=== PATIENT | male | born 1945 | race Caucasian/White ===

== ENCOUNTER 2016-10-20 19:52 | Observation (INO) | payer MEDICARE ==
[~2016-10-20] VITALS: Ht 175.3 cm; Wt 79.5 kg
[2016-10-20 20:11] LABS: BASOPHILS % (AUTO) 1 % (0-10); EOSINOPHILS # (AUTO) 0.2 10^3/uL (0.0-0.3); EOSINOPHILS % (AUTO) 3 % (0-10); LYMPHOCYTES # (AUTO) 1.6 X 10^3 (1.0-4.0); LYMPHOCYTES % (AUTO) 30 % (12-44); MEAN CORPUSCULAR HEMOGLOBIN 32 PG (25-34); MEAN CORPUSCULAR HGB CONC 34 G/DL (32-36); MEAN CORPUSCULAR VOLUME 94 FL (80-99); MEAN PLATELET VOLUME 9.4 FL (7.4-10.4); MONOCYTES # (AUTO) 0.8 X 10^3 (0.0-1.0); MONOCYTES % (AUTO) 15 % (0-12); NEUTROPHILS # (AUTO) 2.7 X 10^3 (1.8-7.8); NEUTROPHILS % (AUTO) 52 % (42-75); PLATELET COUNT 241 10^3/uL (130-400); RED BLOOD COUNT 4.48 10^6/uL (4.35-5.85); RED CELL DISTRIBUTION WIDTH 13.5 % (10.0-14.5); WHITE BLOOD COUNT 5.3 10^3/uL (4.3-11.0)
[2016-10-20 20:22] LABS: PROTHROMBIN TIME PATIENT 13.2 SEC (12.2-14.7)
--- NOTE | 2016-10-20 20:22 | ED General ---
General Chief Complaint: General Problems/Pain Stated Complaint: UNRESPONSIVE Nursing Triage Note: Patient was sitting at table talking to spouse and wouldn't respond. patient was laid on floor and then patient woke again and has been alert since. patient reports golfing today and having 6 beers and a couple mixed drinks Nursing Sepsis Screen: No Definite Risk Source of Information: Patient Exam Limitations: No Limitations History of Present Illness Time Seen by Provider: 20:20 Initial Comments Patient passed out at home. He was sitting at the dinner table talking to his when his head dropped onto his chest and he began to snore. He was completely unresponsive. kept him upright in his chair. When EMS arrived they laid patient supine any quickly regained consciousness. He is on no medicines. He states he's been drinking "all day" and playing golf. He denies chest pain or headache. No vomiting or diarrhea. Allergies and Home Medications Allergies Coded Allergies: Penicillins (Verified Allergy, Unknown, HAD WHEN YOUNG, 01/11/16) Home Medications No Active Prescriptions or Reported Meds Constitutional: malaise, weakness Respiratory: no symptoms reported Cardiovascular: syncope Genitourinary: no symptoms reported Musculoskeletal: no symptoms reported All Other Systems Reviewed Negative Unless Noted: Yes Past Nrmwclu-Tgqceg-Wfrdxi Hx Patient Social History Alcohol Use: Regular Use Recreational Drug Use: No Smoking Status: Former Smoker Recent Foreign Travel: No Contact w/Someone Who Travel: No Recent Infectious Disease Expo: No Recent Hopitalizations: No Seasonal Allergies Seasonal Allergies: No Surgeries HX Surgeries: Yes (THUMB LIGAMENT) Respiratory Hx Respiratory Disorders: No Cardiovascular Hx Cardiac Disorders: No Gastrointestinal Hx Gastrointestinal Disorders: No Musculoskeletal Hx Musculoskeletal Disorders: No Endocrine Hx Endocrine Disorders: No Reviewed Nursing Assessment Reviewed/Agree w Nursing PMH: Yes Physical Exam Vital Signs Vital Sign - Last 12Hours 10/20/16 19:58 Temp 98.4 Pulse 76 Resp 18 B/P (MAP) 107/66 Pulse Ox 97 O2 Delivery Room Air Capillary Refill : Less Than 3 Seconds General Appearance: No Apparent Distress, WD/WN Eyes: Bilateral Eye EOMI, Bilateral Eye Normal Inspection, Bilateral Eye PERRL HEENT: PERRL/EOMI, Pharynx Normal Neck: Supple Respiratory: Lungs Clear, Normal Breath Sounds Cardiovascular: Regular Rate, Rhythm, No Edema Gastrointestinal: Non Tender, Soft Extremity: Normal Inspection, Normal Range of Motion, No Pedal Edema Neurologic/Psychiatric: Alert, Oriented x3, No Motor/Sensory Deficits, Normal Mood/Affect, physician specialist II-XII Norm as Tested Skin: Warm/Dry, Other (flushed) Progress/Results/Core Measures Results/Orders Lab Results Laboratory Tests Test 10/20/16 20:03 Range/Units White Blood Count 5.3 4.3-11.0 10^3/uL Red Blood Count 4.48 4.35-5.85 10^6/uL Hemoglobin 14.2 13.3-17.7 G/DL Hematocrit 42 40-54 % Mean Corpuscular Volume 94 80-99 FL Mean Corpuscular Hemoglobin 32 25-34 PG Mean Corpuscular Hemoglobin Concent 34 32-36 G/DL Red Cell Distribution Width 13.5 10.0-14.5 % Platelet Count 241 130-400 10^3/uL Mean Platelet Volume 9.4 7.4-10.4 FL Neutrophils (%) (Auto) 52 42-75 % Lymphocytes (%) (Auto) 30 12-44 % Monocytes (%) (Auto) 15 H 0-12 % Eosinophils (%) (Auto) 3 0-10 % Basophils (%) (Auto) 1 0-10 % Neutrophils # (Auto) 2.7 1.8-7.8 X 10^3 Lymphocytes # (Auto) 1.6 1.0-4.0 X 10^3 Monocytes # (Auto) 0.8 0.0-1.0 X 10^3 Eosinophils # (Auto) 0.2 0.0-0.3 10^3/uL Basophils # (Auto) 0.0 0.0-0.1 10^3/uL Prothrombin Time 13.2 12.2-14.7 SEC INR Comment 1.0 0.8-1.4 Activated Partial Thromboplast Time 25 24-35 SEC Sodium Level 140 135-145 MMOL/L Potassium Level 3.9 3.6-5.0 MMOL/L Chloride Level 106 98-107 MMOL/L Carbon Dioxide Level 23 21-32 MMOL/L Anion Gap 11 5-14 MMOL/L Blood Urea Nitrogen 12 7-18 MG/DL Creatinine 1.31 H 0.60-1.30 MG/DL Estimat Glomerular Filtration Rate 54 BUN/Creatinine Ratio 9 Glucose Level 98 70-105 MG/DL Calcium Level 8.6 8.5-10.1 MG/DL Magnesium Level 2.2 1.8-2.4 MG/DL Total Bilirubin 0.3 0.1-1.0 MG/DL Aspartate Amino Transf (AST/SGOT) 22 5-34 U/L Alanine Aminotransferase (ALT/SGPT) 19 0-55 U/L Alkaline Phosphatase 54 40-136 U/L Troponin I < 0.30 <0.30 NG/ML Total Protein 6.4 6.4-8.2 G/DL Albumin 3.9 3.2-4.5 G/DL Salicylates Level < 5.0 L 5.0-20.0 MG/DL Acetaminophen Level < 10 L 10-30 UG/ML Serum Alcohol 111 H <10 MG/DL Labs were reviewed My Orders Orders - JOSELYN DERAS MD Ct Head Wo (10/20/16 19:57) Cbc With Automated Diff (10/20/16 19:57) Magnesium (10/20/16 19:57) Chest 1 View, Ap/Pa Only (10/20/16 19:57) Ekg Tracing (10/20/16 19:57) Cardiac Profile 1 (10/20/16 19:57) Comprehensive Metabolic Panel (10/20/16 19:57) Protime With Inr (10/20/16 19:57) Partial Thromboplastin Time (10/20/16 19:57) O2 (10/20/16 19:57) Monitor-Rhythm Ecg Trace Only (10/20/16 19:57) Saline Lock/Iv-Start (10/20/16 19:57) Acetaminophen (10/20/16 20:03) Alcohol (10/20/16 20:03) Drug Screen Stat (Urine) (10/20/16 20:03) Salicylate (10/20/16 20:03) Vital Signs/I&O Vital Sign - Last 12Hours 10/20/16 10/20/16 19:58 19:58 Temp 98.4 Pulse 76 Resp 18 B/P (MAP) 107/66 Pulse Ox 97 O2 Delivery Room Air Blood Pressure Mean: 80 Progress Note : Time: 20:43 Progress Note Test results discussed with patient and spouse. I recommended admission for observation ECG Initial ECG Rhythm: Normal Sinus Initial ECG Intervals: Normal Initial ECG Impression: Nonspecific Changes Diagnostic Imaging Comments Date of Exam:10/20/16 CHEST 1 VIEW, AP/PA ONLY EXAMINATION: Chest radiograph, portable AP view. DATE: October 20, 2016 at 2010 hours. INDICATION: 71-year-old male, syncope. COMPARISON: None. FINDINGS: Heart size and mediastinal contours are unremarkable. There is no identified pneumothorax. There is no large pleural effusion. There is no identified focal airspace consolidation. IMPRESSION: No identified acute cardiopulmonary abnormality. Date of Exam:10/20/16 CT HEAD WO PROCEDURE: CT head without contrast. TECHNIQUE: Multiple contiguous axial images were obtained through the brain without the use of intravenous contrast. DATE: October 20, 2016. COMPARISON: None. INDICATION: 71-year-old male, syncopal episode. FINDINGS: The ventricles and cerebral spinal fluid spaces are of normal size and configuration for the patient's age. There is no mass effect or midline shift. There is no acute intracranial hemorrhage. There is no abnormal extra-axial fluid collection. There is mucosal thickening of the left maxillary sinus. Additional visualized portions of the paranasal sinuses, mastoid air cells and middle ears are well aerated. There is pneumatization of the petrous apices. IMPRESSION: No identified acute intracranial abnormality. Departure Communication Time/Spoke to Admitting Phy: 20:43 Communication I spoke with Dr. Larsen who agrees to admit for observation Impression Impression: Primary Impression: Syncope Disposition: ADMITTED INPATIENT Condition: Stable Decision to Admit Reason: Admit from ER (General) Decision to Admit/Date: Oct 20, 2016 Time/Decision to Admit Time: 20:42 Departure-Patient Inst. Referrals: DAISY DERAS MD (PCP) Primary Care Physician Scripts No Active Prescriptions or Reported Meds JOSELYN DERAS MD Oct 20, 2016 20:22
--- NOTE | 2016-10-20 20:28 | Diagnostic Imaging Report ---
EXAMINATION: Chest radiograph, portable AP view. DATE: October 20, 2016 at 2010 hours. INDICATION: 71-year-old male, syncope. COMPARISON: None. FINDINGS: Heart size and mediastinal contours are unremarkable. There is no identified pneumothorax. There is no large pleural effusion. There is no identified focal airspace consolidation. IMPRESSION: No identified acute cardiopulmonary abnormality. Dictated by: Dictated on workstation # [id number]
[2016-10-20 20:34] LABS: ALANINE AMINOTRANSFERASE 19 U/L (0-55); ALBUMIN 3.9 G/DL (3.2-4.5); ALCOHOL 111 MG/DL (<10); ANION GAP 11 MMOL/L (5-14); ASPARTATE AMINO TRANSFERASE 22 U/L (5-34); BILIRUBIN,TOTAL 0.3 MG/DL (0.1-1.0); BLOOD UREA NITROGEN 12 MG/DL (7-18); BUN/CREATININE RATIO 9; CALCIUM 8.6 MG/DL (8.5-10.1); CARBON DIOXIDE 23 MMOL/L (21-32); CHLORIDE 106 MMOL/L (98-107); CREATININE SERUM 1.31 MG/DL (0.60-1.30); GFR ESTIMATED 54; GLUCOSE 98 MG/DL (70-105); MAGNESIUM 2.2 MG/DL (1.8-2.4); POTASSIUM 3.9 MMOL/L (3.6-5.0); SALICYLATE < 5.0 MG/DL (5.0-20.0); SODIUM 140 MMOL/L (135-145); TOTAL PROTEIN 6.4 G/DL (6.4-8.2)
[2016-10-20 20:35] LABS: ACETAMINOPHEN < 10 UG/ML (10-30)
--- NOTE | 2016-10-20 20:40 | Diagnostic Imaging Report ---
PROCEDURE: CT head without contrast. TECHNIQUE: Multiple contiguous axial images were obtained through the brain without the use of intravenous contrast. DATE: October 20, 2016. COMPARISON: None. INDICATION: 71-year-old male, syncopal episode. FINDINGS: The ventricles and cerebral spinal fluid spaces are of normal size and configuration for the patient's age. There is no mass effect or midline shift. There is no acute intracranial hemorrhage. There is no abnormal extra-axial fluid collection. There is mucosal thickening of the left maxillary sinus. Additional visualized portions of the paranasal sinuses, mastoid air cells and middle ears are well aerated. There is pneumatization of the petrous apices. IMPRESSION: No identified acute intracranial abnormality. Dictated by: Dictated on workstation # [id number]
[2016-10-20] MEDS ORDERED: ATROPINE INJ 0.4 MG/ML SDV ONE (21:51)
[2016-10-20 21:59] VITALS: BP 93/69
[2016-10-20 23:02] VITALS: BP 106/72
[2016-10-20] MEDS ORDERED: NS IV 1000 ML 1,000 ML ONE (23:08)
[2016-10-20] MEDS ORDERED: ATROPINE INJECTION 1 MG/10 ML SYR (ABBOTT) ONE (23:09)
[2016-10-20] MEDS: NS IV 1000 ML 1,000 ML IV SCH (23:16)
[2016-10-20] MEDS ORDERED: ATROPINE IV PRN (23:30)
[2016-10-21] VITALS (14 sets, daily range): BP systolic 102–145; BP diastolic 56–90
[2016-10-21 05:33] LABS: BASOPHILS % (AUTO) 0 % (0-10); EOSINOPHILS # (AUTO) 0.1 10^3/uL (0.0-0.3); EOSINOPHILS % (AUTO) 1 % (0-10); LYMPHOCYTES # (AUTO) 0.9 X 10^3 (1.0-4.0); LYMPHOCYTES % (AUTO) 15 % (12-44); MEAN CORPUSCULAR HEMOGLOBIN 32 PG (25-34); MEAN CORPUSCULAR HGB CONC 33 G/DL (32-36); MEAN CORPUSCULAR VOLUME 95 FL (80-99); MEAN PLATELET VOLUME 9.7 FL (7.4-10.4); MONOCYTES # (AUTO) 0.8 X 10^3 (0.0-1.0); MONOCYTES % (AUTO) 13 % (0-12); NEUTROPHILS # (AUTO) 4.2 X 10^3 (1.8-7.8); NEUTROPHILS % (AUTO) 71 % (42-75); PLATELET COUNT 216 10^3/uL (130-400); RED BLOOD COUNT 4.32 10^6/uL (4.35-5.85); RED CELL DISTRIBUTION WIDTH 13.7 % (10.0-14.5)
[2016-10-21 05:51] LABS: ANION GAP 7 MMOL/L (5-14); BLOOD UREA NITROGEN 13 MG/DL (7-18); BUN/CREATININE RATIO 13; CALCIUM 8.9 MG/DL (8.5-10.1); CARBON DIOXIDE 23 MMOL/L (21-32); CHLORIDE 109 MMOL/L (98-107); CHOLESTEROL 159 MG/DL (< 200); CREATININE SERUM 1.03 MG/DL (0.60-1.30); DIRECT LDL 77 MG/DL (1-129); GFR ESTIMATED > 60; GLUCOSE 129 MG/DL (70-105); MAGNESIUM 2.3 MG/DL (1.8-2.4); PHOSPHORUS 3.2 MG/DL (2.3-4.7); POTASSIUM 4.4 MMOL/L (3.6-5.0); SODIUM 139 MMOL/L (135-145); TRIGLYCERIDES 96 MG/DL (<150); VLDL CHOLESTEROL 19 MG/DL (5-40)
[2016-10-21] MEDS: NS IV 1000 ML 1,000 ML IV SCH (09:10)
--- NOTE | 2016-10-21 11:07 | Consultation-Cardiology ---
HPI-Cardiology Cardiology Consultation: Date of Consultation 10/21/16 Date of Admission 10/20/16 Attending Physician Blanquita Larsen DO Admitting Physician Adeel Grayson MD Consulting Physician ISHAN SOSA MD, FACP, FACC, [facility], CCDS HPI: Chief Complaint: Syncope 71 yo man who passed out the super table. His significant other reports that he started to fade away, snored and started to fall forward when she held him. He came around in about in a min. This happened one time again, again for about a min. His fam and friends laid him down and he came around. These episodes were not preceded by any symptoms other than a feeling of dizziness and warmth. He had been out in the sun, playing golf all day without any water intake, but did have a total of 6-8 beers and 4-5 cocktails before symptoms last night. Had another episode of lilly and low bp while sitting up in the bed in ER. That was also less than a min and responded to flattening the bed No cp or palp or leg swelling or syncope (other than yesterday's episodes) Doesn't smoke cigarettes Review of Systems-Cardiology Review of Systems Constitutional: As described under HPI Eyes: No vision change Ears/Nose/Throat: No ear discharge, No nasal drainage, No recent hearing loss Respiratory: As described under HPI Cardiovascular: As described under HPI Gastrointestinal: No constipation, No diarrhea, No nausea, No vomiting Genitourinary: No dysuria, No hematuria, No urine frequency changes Musculoskeletal: No back pain, No joint pain Skin: No rash, No ulcerations Psychiatric/Neurological: syncope (see above), No focal weakness, No seizure Hematologic: No bleeding abnormalities All Other Systems Reviewed Negative Unless Noted: Yes VGR-Jzdzgq-Baihwe Hx Patient Social History Alcohol Use: Regular Use Recreational Drug Use: No Smoking Status: Former Smoker Recent Foreign Travel: No Recent Infectious Disease Expo: No Hospitalization with Isolation: Denies Physical Abuse Screen: No Sexual Abuse: No Past Medical History PMH As described under Assessment. Family Medical History Family Medical History: No family history of CAD or SCD Allergies and Home Medications Allergies Coded Allergies: Penicillins (Verified Allergy, Unknown, HAD WHEN YOUNG, 01/11/16) Home Medications No Active Prescriptions or Reported Meds Physical Exam-Cardiology Physical Exam Vital Signs/I&O Vital Sign - Last 12Hours 4/10/20/16 10/21/16 10/21/16 23:02 23:57 00:00 00:00 Temp 97.9 Pulse 73 73 Resp 16 13 B/P (MAP) 106/72 106/63 Pulse Ox 94 96 96 98 O2 Delivery Nasal Cannula Nasal Cannula O2 Flow Rate 2.00 2.00 2.00 2.00 10/21/16 10/21/16 10/21/16 10/21/16 01:00 01:00 02:00 03:00 Pulse 73 73 76 68 Resp 13 13 12 B/P (MAP) 108/62 106/56 107/57 Pulse Ox 96 96 99 O2 Delivery Nasal Cannula Nasal Cannula Nasal Cannula O2 Flow Rate 2.00 2.00 2.00 10/21/16 10/21/16 10/21/16 10/21/16 04:00 04:00 04:09 05:00 Temp 98.2 Pulse 67 64 Resp 12 10 B/P (MAP) 105/57 102/64 Pulse Ox 98 96 97 O2 Delivery Nasal Cannula Nasal Cannula Nasal Cannula O2 Flow Rate 2.00 2.00 2.00 2.00 10/21/16 10/21/16 10/21/16 10/21/16 07:00 07:00 08:00 08:00 Temp 98.5 Pulse 65 63 61 Resp 13 11 B/P (MAP) 122/71 115/70 Pulse Ox 98 99 99 O2 Delivery Nasal Cannula Nasal Cannula O2 Flow Rate 2.00 2.00 2.00 10/21/16 10/21/16 09:00 10:00 Pulse 71 63 Resp 16 10 B/P (MAP) 131/79 138/81 Pulse Ox 99 O2 Delivery Room Air Room Air Capillary Refill : Less Than 3 Seconds Constitutional: AAO x 3, well-developed, well-nourished HEENT: hearing is well preserved, No xanthelasmas are seen Neck: No carotid bruit, carotid pulses are 2 + bilaterally, with good upstrokes Respiratory: No accessory muscle use, lungs clear to auscultation Cardiovascular: regular rate-rhythm, S1 and S2, systolic murmur (faint GER at card base) Gastrointestinal: No tender, soft, No guarding, No rebound, audible bowel sounds Extremities: No clubbing, No cyanosis, No significant edema Neurologic/Psychiatric: grossly intact, power is 5/5 both on sides Skin: No rash on exposed areas, No ulcerations on exposed areas Data Review Labs Laboratory Tests 10/20/16 20:03: White Blood Count 5.3, Red Blood Count 4.48, Hemoglobin 14.2, Hematocrit 42, Mean Corpuscular Volume 94, Mean Corpuscular Hemoglobin 32, Mean Corpuscular Hemoglobin Concent 34, Red Cell Distribution Width 13.5, Platelet Count 241, Mean Platelet Volume 9.4, Neutrophils (%) (Auto) 52, Lymphocytes (%) (Auto) 30, Monocytes (%) (Auto) 15H, Eosinophils (%) (Auto) 3, Basophils (%) (Auto) 1, Neutrophils # (Auto) 2.7, Lymphocytes # (Auto) 1.6, Monocytes # (Auto) 0.8, Eosinophils # (Auto) 0.2, Basophils # (Auto) 0.0, Prothrombin Time 13.2, INR Comment 1.0, Activated Partial Thromboplast Time 25, Sodium Level 140, Potassium Level 3.9, Chloride Level 106, Carbon Dioxide Level 23, Anion Gap 11, Blood Urea Nitrogen 12, Creatinine 1.31H, Estimat Glomerular Filtration Rate 54 , BUN/Creatinine Ratio 9, Glucose Level 98, Calcium Level 8.6, Magnesium Level 2.2, Total Bilirubin 0.3, Aspartate Amino Transf (AST/SGOT) 22, Alanine Aminotransferase (ALT/SGPT) 19, Alkaline Phosphatase 54, Troponin I < 0.30, Total Protein 6.4, Albumin 3.9, Salicylates Level < 5.0L, Acetaminophen Level < 10L, Serum Alcohol 111H 10/21/16 05:26: White Blood Count 6.0, Red Blood Count 4.32L, Hemoglobin 13.7, Hematocrit 41, Mean Corpuscular Volume 95, Mean Corpuscular Hemoglobin 32, Mean Corpuscular Hemoglobin Concent 33, Red Cell Distribution Width 13.7, Platelet Count 216, Mean Platelet Volume 9.7, Neutrophils (%) (Auto) 71, Lymphocytes (%) (Auto) 15, Monocytes (%) (Auto) 13H, Eosinophils (%) (Auto) 1, Basophils (%) (Auto) 0, Neutrophils # (Auto) 4.2, Lymphocytes # (Auto) 0.9L, Monocytes # (Auto) 0.8, Eosinophils # (Auto) 0.1, Basophils # (Auto) 0.0, Sodium Level 139, Potassium Level 4.4, Chloride Level 109H, Carbon Dioxide Level 23, Anion Gap 7, Blood Urea Nitrogen 13, Creatinine 1.03, Estimat Glomerular Filtration Rate > 60, BUN/ Creatinine Ratio 13, Glucose Level 129H, Calcium Level 8.9, Magnesium Level 2.3 , Phosphorus Level 3.2, Triglycerides Level 96, Cholesterol Level 159, LDL Cholesterol Direct 77, VLDL Cholesterol 19, HDL Cholesterol 56 Laboratory Tests 10/20/16 20:03 10/21/16 05:26 A/P-Cardiology Assessment/Admission Diagnosis Syncope, likely vasovagal, promoted by heavy alcohol use and dehydration: no recurrence after hydration Ac renal insufficiency, likely due to dehydration, resolved after hydration Echo of 10/21/16: LVEF 60-65%, triv MR and TR, no valvular stenosis, mod dilation of IVC, PASP approx 25 mmHg Discussion and Recomendations * CT angio of chest to eval for PE, given IVC dilatation * Have advised avoidance of alcohol and good hydration * Advised one more night of cardiac monitoring in the hosp, but he refuses * Have advised close outpatient f/u * Have advised avoidance of driving or op machinery or climbing ladders or other activity where syncope may lead to injury to self or others. This is until further instructions * Have advised return to ER for any recurrence of symptoms * He understands and states compliance Clinical Quality Measures DVT/VTE Risk/Contraindication: Risk Factor Score Per Nursin RFS Level Per Nursing on Admit: 1=Low/No VTE PPX ISHAN SOSA MD FACP FAC CCDS Oct 21, 2016 11:07
[2016-10-21] MEDS ORDERED: NS 100 ML (IVPB) BAG IV ONE (11:30)
[2016-10-21] MEDS ORDERED: IOHEXOL 350 MG/ML 150 ML (OMNIPAQUE 350) VIAL IV ONE (11:30)
--- NOTE | 2016-10-21 11:47 | Short Stay Summary-Hospitalist ---
HPI History of Present Illness: HPI/Chief Complaint CC: Syncope HPI: This is a 71-year-old white male area healthy individual of Dr. Grayson's presented to the emergency room after syncopal episode at the supper table last night. It is to note that he had 8-10 beers yesterday while playing golf and had 4 or 5 more cocktails at supper time but due to the fact of his age and risk for coronary artery disease and possible sick sinus syndrome considering he was bradycardic in the ER he was deemed meeting criteria for at least observation and cardiology evaluation. Echocardiogram did show some pronounced pulmonary vessels so will do CT and U of the chest to be sure there is no pulmonary embolism causing the syncopal episode but if that is negative we intend to get him home and he is to limit his alcohol content and make sure his fluid intake is adequate to prevent dehydration. Source: patient Exam Limitations: no limitations Date Seen 10/21/16 Attending Physician Blanquita Larsen DO PCP Adeel Grayson MD Referring Physician Date of Admission Oct 20, 2016 at 20:00 Home Medications & Allergies Home Medications Reviewed patient Home Medication Reconciliation Form Allergies Allergies Coded Allergies Penicillins (Verified Allergy, Unknown, HAD WHEN YOUNG, 01/11/16) Past Jwmiakh-Tdipmy-Glxxsc Hx Patient Social History Marrital Status: Employed/Student: retired (IT ) Alcohol Use: Regular Use Recreational Drug Use: No Smoking Status: Former Smoker Physical Abuse Screen: No Sexual Abuse: No Recent Foreign Travel: No Contact w/other who traveled: No Recent Hopitalizations: No Recent Infectious Disease Expo: No Seasonal Allergies Seasonal Allergies: No Surgeries HX Surgeries: Yes (THUMB LIGAMENT) Respiratory Hx Respiratory Disorders: No Cardiovascular Hx Cardiovascular Disorders: No Neurological Hx Neurological Disorders: No Genitourinary Hx Genitourinary Disorders: No Gastrointestinal Hx Gastrointestinal Disorders: No Musculoskeletal Hx Musculoskeletal Disorders: No Endocrine Hx Endocrine Disorders: No HEENT HX ENT Disorders: No Cancer Hx Cancer: No Psychosocial Hx Psychiatric Problems: No Integumentary HX Skin/Integumentary Disorder: No Reviewed Nursing Assessment Reviewed/Agree w Nursing PMH: Yes Review of Systems Constitutional: see HPI, malaise, weakness EENTM: no symptoms reported Respiratory: no symptoms reported Cardiovascular: no symptoms reported Gastrointestinal: no symptoms reported Genitourinary: no symptoms reported Musculoskeletal: no symptoms reported Skin: no symptoms reported Psychiatric/Neurological: No Symptoms Reported All Other Systems Reviewed Negative Unless Noted: Yes Physical Exam Physical Exam Vital Signs Vital Sign - Last 12Hours 10/20/16 10/20/16 19:58 23:02 Temp 98.4 Pulse 76 Resp 18 B/P (MAP) 107/66 Pulse Ox 97 O2 Delivery Room Air O2 Flow Rate 2.00 Capillary Refill : Less Than 3 Seconds General Appearance: No Apparent Distress, WD/WN Eyes: Bilateral Eye Normal Inspection, Bilateral Eye PERRL HEENT: PERRL/EOMI, Normal ENT Inspection, Pharynx Normal Neck: Full Range of Motion, Normal Inspection, Non Tender, Supple, Carotid Bruit Respiratory: Chest Non Tender, Lungs Clear, Normal Breath Sounds, No Accessory Muscle Use, No Respiratory Distress Cardiovascular: Regular Rate, Rhythm, No Edema, No Gallop, No JVD, No Murmur, Normal Peripheral Pulses Gastrointestinal: Normal Bowel Sounds, No Organomegaly, No Pulsatile Mass, Non Tender, Soft Back: Normal Inspection, No CVA Tenderness, No Vertebral Tenderness Extremity: Normal Capillary Refill, Normal Inspection, Normal Range of Motion, Non Tender, No Calf Tenderness, No Pedal Edema Neurologic/Psychiatric: Alert, Oriented x3, No Motor/Sensory Deficits, Normal Mood/Affect Skin: Normal Color, Warm/Dry Lymphatic: No Adenopathy Results Results/Procedures Lab Laboratory Tests 10/20/16 20:03 10/21/16 05:26 Short Stay Diagnosis Discharge Diagnosis-Short Stay Admission Diagnosis Assessment: Syncope likely due to vasovagal with alcohol intoxication Final Discharge Diagnosis Assessment: Syncope likely due to vasovagal with alcohol intoxication Conclusion Plan Plan: CT angiogram today and if negative will discharge home Follow up with Dr. Grayson to evaluate results and plan accordingly Limit alcohol consumption and increase fluid intake Clinical Quality Measures DVT/VTE Risk/Contraindication: Risk Factor Score Per Nursin RFS Level Per Nursing on Admit: 1=Low/No VTE PPX BLANQUITA LARSEN DO Oct 21, 2016 11:47
--- NOTE | 2016-10-21 12:02 | Diagnostic Imaging Report ---
PROCEDURE: CT angiography of the chest with contrast. TECHNIQUE: Multiple contiguous axial images were obtained through the chest after uneventful bolus administration of intravenous contrast. Reconstructed CTA MIP acquisitions were also performed. INDICATION: Syncope. FINDINGS: There is adequate opacification demonstrated of the pulmonary arterial tree. There is no filling defect demonstrated within the pulmonary arteries to suggest a pulmonary embolism. Ascending aorta is unremarkable. There is some mild ectasia demonstrated of the thoracic aorta just beyond the origin of the left subclavian artery measuring up to 3.3 cm. There is no aortic dissection. There is no pericardial collection. There is no pathologically enlarged mediastinal, hilar or axillary lymph nodes evident. The lungs demonstrate some small cystic spaces suggestive of mild underlying centrilobular emphysema. No pulmonary nodule or mass demonstrated. There is no focal consolidation. There is some mild left base atelectasis. There is no effusion or pneumothorax. The visualized portion of the upper abdomen demonstrates no acute abnormalities. There are multilevel degenerative endplate changes present within the spine but no acute or suspicious osseous abnormality. IMPRESSION: 1. There is no CT angiographic evidence of pulmonary embolism. The main pulmonary artery is smaller than the ascending aorta. 2. There is mild ectasia of the thoracic aorta just beyond the left subclavian origin measuring up to 3.3 cm. There is no dissection. 3. Early features of centrilobular pulmonary emphysema without focal pulmonary infiltrate, mass or pleural effusion. Dictated by: Dictated on workstation # [id number]
[2016-10-21] MEDS ORDERED: CATHETER FLUSH 10 ML SYR IV PRN (13:15)
--- NOTE | 2016-10-22 06:59 | ECHOCARDIOGRAPHY REPORT ---
DATE OF SERVICE: 10/21/2016 DATE OF SERVICE: 10/21/2016 ORDERING PHYSICIAN: Dr. Weiss. PRIMARY CARE PHYSICIAN: Dr. Larsen. CLINICAL DIAGNOSIS: Syncope. MEASUREMENTS: 1. Aortic root 3.3. 2. Left atrium 4.1. 3. IVF thickness, diastolic, 1.1. 4. LVPW thickness, diastolic, 1.1. 5. LV diameter, diastolic, 4.9. DESCRIPTION: Two-dimensional echocardiography shows normal global left ventricular systolic function with normal regional wall motion. Left ventricular ejection fraction is 60-65%. Aortic, mitral, and tricuspid valve leaflets show good leaflet excursion. There is no significant pericardial effusion. Doppler imaging shows trivial tricuspid and mitral regurgitation. There is no Doppler evidence of significant valvular stenosis. Mitral inflow is consistent with grade 1 diastolic dysfunction of the left ventricle. There is no Doppler evidence of any significant valvular stenosis. There is no evidence of significant intracardiac shunt on this transthoracic echocardiographic study. Inferior vena cava appears to be moderately dilated. Pulmonary artery systolic pressure is estimated to be 25 mmHg. CONCLUSIONS: 1. Normal global left ventricular systolic function with ejection fraction of 60-65%. 2. Mild diastolic dysfunction, left ventricle. 3. Trivial mitral and tricuspid regurgitation. 4. Mild diastolic dysfunction, left ventricle. 5. Pulmonary artery systolic pressure is estimated to be approximately 25 mmHg. Job ID: [id number] DocumentID: [id number] Dictated Date: 10/21/2016 10:53:32 [employer]ine Tank T[employer] Date: 10/21/2016 11:23:13 Dictated By: ISHAN WEISS MD, MA, FACP, FACC,
== END 2016-10-21 13:05 | disposition home or self-care (01) ==
LOC: EDUNIT# 19:52 → ER 19:56 → ICU 20:00 → UNDOADMOB 20:00 → ICU 22:48 → UNDODISOB 10-21 13:15
PROVIDERS: ADMIT Internal Medicine; ATTEND Internal Medicine
DX: E86.0 Dehydration (principal); F10.929 Alcohol use, unspecified with intoxication, unspecified; R55 Syncope and collapse
CPT/HCPCS: 36415; 70450; 71010; 71275; 80048; 80053; 80061; 80320; 80329; 83735; 84100; 84484; 85025; 85610; 85730; 93005; 93041; 93306; G0378

== ENCOUNTER → 2021-02-17 | Outpatient (CLI) | payer MEDICARE ==
--- NOTE | 2021-02-17 09:55 | Diagnostic Imaging Report ---
EXAMINATION: CT chest without contrast (lung screening). TECHNIQUE: Multiple contiguous axial images were obtained through the chest without the use of intravenous contrast according to lung cancer screening protocol. All CT scans use one or more of the following dose optimizing techniques: automated exposure control, MA and/or KvP adjustment based on patient size and exam type or iterative reconstruction. HISTORY: 30 pack year history of smoking. COMPARISON: CTA chest 10/21/2016 FINDINGS: Thyroid: The thyroid is normal. Mediastinum: Heart size is normal without significant pericardial effusion. The aorta is normal in caliber. No suspicious lymphadenopathy. Lungs and airways: There are background emphysematous changes of the lungs without consolidation, pleural effusion, or pneumothorax. There are a few scattered calcified granulomas. Stable 0.6 x 0.4 cm right middle lobe subpleural pulmonary nodule (series 2 image 131). Stable 0.3 x 0.3 cm left upper lobe subpleural pulmonary nodule (series 2 image 158). No new suspicious pulmonary nodule. The airways are normal. Upper abdomen: The subphrenic structures are normal. Musculoskeletal: Degenerative changes of the spine without suspicious osseous lesion or compression fracture. IMPRESSION: 1. No new suspicious pulmonary nodule. Recommend continued annual low-dose CT screening. 2. Stable bilateral pulmonary nodules measuring up to 0.5 cm average compared to prior CT of 10/21/2016. LUNG-RADS CATEGORY: 2 MODIFIER: S Dictated by: Dictated on workstation # [id number]
== END ==
LOC: RAD 08:15
PROVIDERS: ATTEND Nurse Practitioner Family
DX: Z12.2 Encounter for screening for malignant neoplasm of respiratory organs (principal); R91.8 Other nonspecific abnormal finding of lung field; Z87.891 Personal history of nicotine dependence
CPT/HCPCS: 71271

== ENCOUNTER 2021-02-23 06:32 | Outpatient (CLI) | payer MEDICARE ==
[~2021-02-23] VITALS: Ht 175.3 cm; Wt 80.8 kg
== END 2021-02-27 08:30 ==
LOC: PREOP 06:32
PROVIDERS: ATTEND Internal Medicine
DX: Z01.818 Encounter for other preprocedural examination (principal)

== ENCOUNTER 2021-03-03 08:38 | Day surgery (SDC) | payer MEDICARE ==
--- NOTE | 2021-02-23 06:17 | HISTORY AND PHYSICAL ---
DATE OF SERVICE: COLONOSCOPY HISTORY AND PHYSICAL DATE OF ADMISSION: . HISTORY OF PRESENT ILLNESS: The patient is a spry 75-year-old white male referred by Dr. Grayson for surveillance colonoscopy. He has a family history of colon cancer, index case being maternal grandmother diagnosed in her 60s with colon cancer and also has a past history of colonic polyps. He last underwent colonoscopy five years ago, at which time he had one tubular adenoma biopsied and ablated from the distal sigmoid colon. He reports no major change in health history over the interval of five years. He takes no medication and reports no change in bowel habits, melena or bright red blood per rectum or abdominal pain. He reports that his weight, he believes, is lower than five years ago and this was borne out to down 12 pounds due to changes in diet and activity. He has no past history of pulmonary or cardiovascular disease. 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 He has had prostatectomy for prostate cancer six and a half years ago with no evidence for recurrence. SOCIAL HISTORY: He is retired. 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 He has a 89-[id number] smoking history, but quit over 10 years ago and does report on average two to three beers per day intake. REVIEW OF SYSTEMS: CONSTITUTIONAL: Pertinent for weight loss, although it is intentional without night sweats, chills or fever. GASTROINTESTINAL: As noted in the HPI. PULMONARY: Denies cough, shortness of breath or wheezing. CARDIOVASCULAR: Denies orthopnea, PND, chest pain, syncope or presyncope. PHYSICAL EXAMINATION: GENERAL: Reveals a well-appearing white male in no acute distress. VITAL SIGNS: Weight 178 pounds down 12 pounds over the last five years. Blood pressure is 140/82. HEENT: Unremarkable. CHEST: Clear. CARDIOVASCULAR: Reveals a regular rate and rhythm without murmur, S3 or S4. ABDOMEN: Soft, supple without mass, organomegaly or tenderness. RECTAL: Deferred at the time of colonoscopy. EXTREMITIES: Reveal no cyanosis, clubbing or edema. ASSESSMENT AND PLAN: The patient is being set up for surveillance colonoscopy due to the family history of colon cancer as well as a past history for adenomatous colonic polyps. Prep instructions with the Leslie-Tab were given and questions were answered. I thank you for the referral of this pleasant gentleman. Job ID: [id number] DocumentID: [id number] Dictated Date: 02/20/2021 16:15:26 Recovery Assistant Date: 02/20/2021 16:49:31 Dictated By: JOSÉ ANTONIO GORDILLO MD
[~2021-03-03] VITALS: Ht 175.3 cm; Wt 80.8 kg
[2021-03-03] MEDS ORDERED: LACTATED RINGERS 1,000 ML IV ONE (08:44)
[2021-03-03 08:45] VITALS: BP 159/82
[2021-03-03] MEDS ORDERED: LACTATED RINGERS 1,000 ML IV STA (08:47)
[2021-03-03] MEDS ORDERED: LIDOCAINE JELLY 2% 6 ML SYRINGE MM PRN (09:00)
--- NOTE | 2021-03-03 09:10 | Pre-Op Note & Conscious Sedat ---
Pre-Operative Progress Note H&P Reviewed The H&P was reviewed, patient examined and no changes noted. Date H&P Reviewed: Mar 03, 2021 Time H&P Reviewed: 09:10 Conscious Sedation Pre-Proced ASA Score 2 For ASA 3 and 4: Consider anesthesia and medical clearance. Also, for patients with a history of failed moderate sedation consider anesthesia. Airway Lungs Heart ASA score ASA 1: a normal healthy patient ASA 2: a patient with a mild systemic disease (mid diabetes, controlled hypertension, obesity ASA 3: a patient with a severe systemic disease that limits activity (angina, COPD, prior Myocardial infarction) ASA 4: a patient with an incapacitating disease that is a constant threat to life (CHF, renal failure) ASA 5: a moribund patient not expected to survive 24 hrs. (ruptured aneurysm) ASA 6: a declared brain- patient whose organs are being harvested. For emergent operations, add the letter E after the classification Mallampati Classification Grade 2 Sedation Plan Analgesia, Amnesia, Plan communicated to team members, Discussed options with patient/fam, Discussed risks with patient/fam The patient is an appropriate candidate to undergo the planned procedure, sedation, and anesthesia. The patient immediately re-assessed prior to indication. JOSÉ ANTONIO GORDILLO MD Mar 03, 2021 09:10
[2021-03-03] MEDS ORDERED: PROPOFOL INJECTION 50 ML IV ONE (09:33)
[2021-03-03 10:10] VITALS: BP 131/71
[2021-03-03 10:15] VITALS: BP 129/72
--- NOTE | 2021-03-03 10:15 | Anesthesia-General Post-Op ---
MAC Patient Condition Mental Status/LOC: Same as Preop Cardiovascular: Satisfactory Nausea/Vomiting: Absent Respiratory: Satisfactory Pain: Controlled Complications: Absent Post Op Complications Complications None Follow Up Care/Instructions Patient Instructions None needed. Anesthesiology Discharge Order Discharge Order Patient is doing well, no complaints, stable vital signs, no apparent adverse anesthesia problems. No complications reported per nursing. SCOTTIE CROUCH CRNA Mar 03, 2021 10:15
[2021-03-03 10:20] VITALS: BP 129/72
[2021-03-03 10:40] VITALS: BP 129/72
--- NOTE | 2021-03-03 17:12 | OPERATIVE REPORT ---
DATE OF SERVICE: COLONOSCOPY SUMMARY INDICATION FOR THE PROCEDURE: Surveillance colonoscopy due to history of colon polyps. DESCRIPTION OF PROCEDURE: The patient was placed in the left lateral decubitus position. Prior to undergoing colonoscopy, digital rectal evaluation was performed. Anal sphincter tone was normal and the perianal reflexes intact. A small mobile nodule was noted in the anal canal. There was surgical absence of the prostate. No other abnormalities were noted on digital inspection of anal canal or distal rectal vault. The colonoscope was then inserted into the rectum and under direct visualization, the scope was advanced to the cecum. The cecum was identified by identification of ileocecal valve and cecal strap. Photographic dictation was obtained. A careful inspection was made as the colonoscope was withdrawn. Quality of prep was good. FINDINGS: There was no evidence for internal or external hemorrhoids. There appeared to be a prominent anal papilla that had squamous mucosa with no ulceration. It was photographed measuring about 4 mm in size, but not completely benign appearance. The rectum was otherwise unremarkable. Moderate number of small to medium size sigmoid diverticulum were present without evidence for diverticulitis. No other sigmoid colonic abnormalities were appreciated. The descending colon, splenic flexure and transverse colon were unremarkable. A diminutive 3 mm sessile polyp was noted at hepatic flexure, was biopsied with cold forceps and removed in its entirety with no significant bleeding. The ascending colon and cecum were unremarkable. ASSESSMENT: 1. One sessile polyp was removed from the hepatic flexure via cold forceps. As long as there are no surprises on histopathology report, would advocate consideration for a repeat surveillance colonoscopy in five years. 2. Moderate diverticular disease confined to the sigmoid colon was present without evidence for diverticulitis. 3. Benign appearing anal canal papilloma. I thank you for the referral of this pleasant gentleman. Job ID: [id number] DocumentID: [id number] Dictated Date: 03/03/2021 10:25:52 Inventory Auditor Date: 03/03/2021 17:11:26 Dictated By: JOSÉ ANTONIO GORDILLO MD [facility]
== END 2021-03-03 10:45 | disposition home or self-care (01) ==
LOC: ENDO 08:38
PROVIDERS: ATTEND Internal Medicine
DX: Z12.11 Encounter for screening for malignant neoplasm of colon (principal); D12.3 Benign neoplasm of transverse colon; K57.30 Diverticulosis of large intestine without perforation or abscess without bleeding; Z87.891 Personal history of nicotine dependence; Z80.0 Family history of malignant neoplasm of digestive organs
CPT/HCPCS: 88305

== ENCOUNTER → 2022-04-06 | Outpatient (CLI) | payer MEDICARE ==
--- NOTE | 2022-04-06 11:56 | Diagnostic Imaging Report ---
EXAMINATION: CT chest without contrast (lung screening). TECHNIQUE: Multiple contiguous axial images were obtained through the chest without the use of intravenous contrast according to lung cancer screening protocol. All CT scans use one or more of the following dose optimizing techniques: automated exposure control, MA and/or KvP adjustment based on patient size and exam type or iterative reconstruction. HISTORY: 30 pack year history of smoking. COMPARISON: 02/17/2021 FINDINGS: There is no edema or pneumonia. No pleural effusion. No pneumothorax. No suspicious nodules. There is a stable 6 mm nodule in the anterior right middle lobe. The minor fissure on the right is incomplete. There is no axillary or supraclavicular lymphadenopathy. There is no mediastinal lymphadenopathy. Heart size is normal. There are mild coronary artery calcifications. No pericardial effusion. Aorta is normal in caliber. Limited views of the upper abdomen are unremarkable. There are no suspicious osseous lesions. IMPRESSION: 1. No suspicious pulmonary nodules. LUNG-RADS CATEGORY: 2 MODIFIER: None. Dictated by: Dictated on workstation # [id number]
== END ==
LOC: RAD 09:45
PROVIDERS: ATTEND Internal Medicine
DX: Z12.2 Encounter for screening for malignant neoplasm of respiratory organs (principal); J44.9 Chronic obstructive pulmonary disease, unspecified; F17.210 Nicotine dependence, cigarettes, uncomplicated
CPT/HCPCS: 71271